=== PATIENT | male | born 1960 | race Caucasian/White ===

== ENCOUNTER → 2016-06-04 | Outpatient (REF) | LOC: WSOH 08:11 | DX: Z00.00 Encounter for general adult medical examination without abnormal findings (principal) ==

== ENCOUNTER → 2017-04-29 | Outpatient (REF) | LOC: WSOH 08:22 | DX: Z00.00 Encounter for general adult medical examination without abnormal findings (principal) ==

== ENCOUNTER 2018-10-13 07:15 | Day surgery (SDC) | payer BC, OTHER ==
[~2018-10-13] VITALS: Ht 167.6 cm; Wt 105.8 kg
[2018-10-13] MEDS ORDERED: HCTZ12.5TAB PO (07:36)
[2018-10-13] MEDS ORDERED: ZYRTEC 10MG10 MG PO (07:47)
[2018-10-13] MEDS ORDERED: CLARITIN 1010 MG/TAB PO (07:48)
[2018-10-13 07:53] VITALS: BP 121/77; PULSE 67; TEMP 97.4
[2018-10-13 09:00] VITALS: BP 122/82; PULSE 79
--- NOTE | 2018-10-13 09:00 | NUR ---
Patient returns to room 2 per cart after having colonoscopy completed. Awake and alert and transfers from cart to recliner with two person standby assist. IV fluids infusing. Call light in reach and spouse in room. Denies abdominal or nausea. Given water and coffee to drink and muffin to eat.
[2018-10-13 09:15] VITALS: BP 129/95; PULSE 71
--- NOTE | 2018-10-13 09:15 | NUR ---
Eating muffin and sipping on coffee. Room air sats 97%. Talking with spouse.
[2018-10-13 09:30] VITALS: BP 122/85; PULSE 73
--- NOTE | 2018-10-13 09:30 | NUR ---
IV discontinued and allowed to dress. Denies abdominal pain or nausea. Family in room.
--- NOTE | 2018-10-13 09:40 | NUR ---
Dr. Girard to talk with the patient and all questions answered.
--- NOTE | 2018-10-13 09:55 | NUR ---
Given dismissal instructions and voices understanding of follow up and home cares. Provided office number for questions and concerns. Patient dismissed to home per private vehicle driven by spouse and escorted to the front door ambulatory by RN and assisted into vehicle.
== END 2018-10-13 09:55 | disposition home or self-care (01) ==
LOC: SDCO 07:15
DX: Z12.11 Encounter for screening for malignant neoplasm of colon (principal); D12.5 Benign neoplasm of sigmoid colon; K63.5 Polyp of colon; I10 Essential (primary) hypertension; Z79.899 Other long term (current) drug therapy; K64.0 First degree hemorrhoids
CPT/HCPCS: J2250; J3010; J7030